=== PATIENT | female | born 1950 | race Caucasian/White ===

== ENCOUNTER 2017-11-12 20:20 | Emergency (ER) | payer MEDICARE, MEDICAID ==
[~2017-11-12] VITALS: Ht 160 cm; Wt 75.0 kg
[~2017-11-12 20:20] MED LIST: ADVA250A INH; ARMO90TA PO; BECL0.07 INH; CHOL50006 PO; EPZITAB4 PO; LEXA20TA PO; NEVI200 PO; ROSU10 PO; SPIRCAP INH; VITA10002 PO; Z.0.OXYGEN INH
[2017-11-12 20:36] VITALS: BP 173/94; PULSE 120; RESP 22; TEMP 98.4; O2SAT 96
[2017-11-12 22:00] VITALS: RESP 16; O2SAT 99
[2017-11-12] MEDS ORDERED: LORazepam 2 MG/ML VIAL IV PUSH ONE (22:00)
[2017-11-12] MEDS ORDERED: SODIUM CHLORIDE 0.9% FLUSH 10 ML FLUSH IVF PRN (22:00)
[2017-11-12] MEDS ORDERED: ASPIRIN 81 MG CHEW TAB PO ONE (22:00)
[2017-11-12 22:42] LABS: AUTOMATED NEUTROPHIL # 4.2 TH/MM3 (1.8-7.7); BASOPHIL % 0.4 % (0.0-2.0); EOSINOPHIL # 0.1 TH/MM3 (0-0.4); EOSINOPHIL % 1.7 % (0.0-4.0); HEMATOCRIT 37.8 % (35.0-46.0); HEMOGLOBIN 13.2 GM/DL (11.6-15.3); LYMPH % 25.7 % (9.0-44.0); LYMPHOCYTE # 1.7 TH/MM3 (1.0-4.8); MEAN CELL VOLUME 91.3 FL (80.0-100.0); MEAN CORPUSCULAR HEMOGLOBIN 31.9 PG (27.0-34.0); MEAN CORPUSCULAR HGB CONC 34.9 % (32.0-36.0); MEAN PLATELET VOLUME 8.6 FL (7.0-11.0); MONO % 6.6 % (0.0-8.0); MONOCYTE # 0.4 TH/MM3 (0-0.9); NEUT % 65.6 % (16.0-70.0); PLATELET COUNT 182 TH/MM3 (150-450); RED BLOOD COUNT 4.14 MIL/MM3 (4.00-5.30); RED CELL DISTRIBUTION WIDTH 14.5 % (11.6-17.2); WHITE BLOOD COUNT 6.4 TH/MM3 (4.0-11.0)
--- NOTE | 2017-11-12 22:53 | RADRPT ---
EXAM DATE/TIME: 11/12/2017 22:16 [place] COMPARISON: CHEST EXPIRATION ONLY, September 09, 2012, 11:35. INDICATIONS : Chest pain and short of breath. MEDICAL HISTORY : Carcinoma, thyroid. Carcinoma, lung. SURGICAL HISTORY : Left lung lobectomy, Rt infusaport. ENCOUNTER: Initial ACUITY: 1 day PAIN SCORE: 2/10 LOCATION: Bilateral chest FINDINGS: There is linear scarring in the right perihilar region in patient with history of lung cancer. No inf iltrate on the left with blunting of the left costophrenic angle, stable since 2012 and likely scarri ng. CONCLUSION: 1. Post treatment changes in the right perihilar region with residual linear scarring. Scarring at le ft costophrenic angle. No focal consolidation. Blaise Ricketts MD on November 12, 2017 at 22:49 Board Certified Radiologist. This report was verified electronically.
[2017-11-12 23:12] LABS: BICARBONATE 26.3 MEQ/L (21.0-32.0); BLOOD UREA NITROGEN 12 MG/DL (7-18); CALCIUM 8.3 MG/DL (8.5-10.1); CHLORIDE 106 MEQ/L (98-107); GLOMERULAR FILTRATION RATE 71 ML/MIN (>89); GLUCOSE,RANDOM 106 MG/DL (74-106); MAGNESIUM 1.7 MG/DL (1.5-2.5); SODIUM (NA) 141 MEQ/L (136-145); TROPONIN I LESS THAN 0.02 NG/ML (0.02-0.05)
--- NOTE | 2017-11-12 23:15 | PD ---
HPI . Anxiety Chief Complaint: Anxiety Time Seen by Provider: 21:57 Travel History International Travel<30 days: No Contact w/Intl Traveler<30days: No Traveled to known affect area: No History of Present Illness HPI Patient presents with a chief complaint of anxiety. Onset was about 4 PM. She took Valium 5 mg with no relief of her anxiety. The anxiety is associated with a headache. She states that she feels tremulous. She does report some associated chest discomfort. Her symptoms have improved with Ativan given here. Symptoms have been mild. PFSH Past Medical History Arthritis: No Asthma: No Autoimmune Disease: Yes (HIV) Blood Disorders: No Anxiety: Yes Depression: No Heart Rhythm Problems: No Cancer: Yes Cardiovascular Problems: No High Cholesterol: Yes Chemotherapy: Yes (thyroid) Chest Pain: No Congestive Heart Failure: No COPD: No Cerebrovascular Accident: No Diabetes: No Diminished Hearing: No Endocrine: Yes GERD: No Glaucoma: No Genitourinary: No Hepatitis: No Hiatal Hernia: Yes Hypertension: No Immune Disorder: No Kidney Stones: Yes (LEFT 2007) Musculoskeletal: Yes Neurologic: No Psychiatric: No Reproductive: No Respiratory: Yes (upper right lobe removal) Immunizations Current: No Migraines: Yes Myocardial Infarction: No Radiation Therapy: Yes Renal Failure: No Seizures: No Sickle Cell Disease: No Sleep Apnea: Yes Thyroid Disease: Yes (thyroidectomy) Ulcer: No Tetanus Vaccination: > 5 Years Influenza Vaccination: No Menopausal: Yes Past Surgical History Abdominal Surgery: No AICD: No Appendectomy: No Arteriovenous Shunt: No Cardiac Surgery: No Cholecystectomy: No Ear Surgery: No Endocrine Surgery: No Eye Surgery: No Genitourinary Surgery: No Gynecologic Surgery: No Insulin Pump: No Joint Replacement: No Oral Surgery: Yes (tonsillectomy) Pacemaker: No Thoracic Surgery: Yes (upper left lobectomy) Tonsillectomy: Yes (11 YRS OLD) Other Surgery: Yes Social History Alcohol Use: No Tobacco Use: No Substance Use: No Allergies-Medications (Allergen,Severity, Reaction): Coded Allergies: diatrizoate meglumine (Unverified Allergy, Severe, Rash, 11/12/17) Rash all over gadobenic acid (Unverified Allergy, Severe, Rash, 11/12/17) Rash all over gadodiamide (Unverified Allergy, Severe, Rash, 11/12/17) Rash all over gadoteridol (Unverified Allergy, Severe, Rash, 11/12/17) Rash all over iodixanol (Unverified Allergy, Severe, Rash, 11/12/17) Rash all over iohexol (Unverified Allergy, Severe, Rash, 11/12/17) Rash all over niacin (Unverified Allergy, Severe, RASH, 11/12/17) Rash all over levofloxacin (Unverified Allergy, Intermediate, BILAT KNEE SWELLING, ) Uncoded Allergies: niaspan (Allergy, Severe, rash and shortness of breath, 03/24/13) Reported Meds & Prescriptions Reported Meds & Active Scripts Active Spiriva Handihaler (Tiotropium [place]) 18 Mcg Cap 1 Dose INH DAILY DO NOT SWALLOW CAPSULES Qvar (Beclomethasone Dipropionate) 40 Mcg Aer 1 Puff INH BID [place] Thyroid (Thyroid) 90 Mg Tab 90 Mg PO DAILY Reported Vitamin D (Cholecalciferol) 5,000 Unit Tab 5,000 Unit PO DAILY Advair Diskus 250/50 (Salmeterol Xinafoate/Fluticasone) 250 Mcg/50 Mcg Inhp 1 Puff INH BID Crestor (Rosuvastatin Calcium) 10 Mg Tab 10 Mg PO DAILY Vitamin B12 (Cyanocobalamin) 1,000 Mcg Tab 2,500 Mcg PO DAILY Viramune (Nevirapine) 200 Mg Tab 200 Mg PO DAILY Oxygen (O2) (Miscellaneous Medication) Inha 2 L INH HS Lexapro (Escitalopram Oxalate) 20 Mg Tab 20 Mg PO DAILY Epzicom 600/300 (Abacavir/Lamivudine) Tab 1 Tab PO DAILY Review of Systems Except as stated in HPI: all other systems reviewed are Neg HENT: Positive: Headaches Cardiovascular: Positive: Chest Pain or Discomfort Respiratory: No: Cough, Shortness of Breath Psychiatric: Positive: Anxiety Physical Exam Narrative GENERAL: Awake and alert and in no acute distress. SKIN: warm/dry. HEAD: Normocephalic. Atraumatic. EYES: Pupils equal and round. No scleral icterus. No injection or drainage. ENT: No nasal bleeding or discharge. Mucous membranes pink and moist. NECK: Trachea midline. Full range of motion without pain.. CARDIOVASCULAR: Regular rate and rhythm. Heart sounds are normal. RESPIRATORY: No accessory muscle use. Clear to auscultation. Breath sounds equal bilaterally. MUSCULOSKELETAL: No obvious deformities. NEUROLOGICAL: Awake and alert. No obvious cranial nerve deficits. Motor grossly within normal limits. Normal speech. PSYCHIATRIC: Appropriate mood and affect; insight and judgment normal. Data Data Last Documented VS Vital Signs Date Time Temp Pulse Resp B/P (MAP) Pulse Ox O2 Delivery O2 Flow Rate FiO2 11/12/17 22:00 16 99 Room Air 11/12/17 20:36 98.4 120 173/94 (120) Orders Orders Electrocardiogram (11/12/17 ) Electrocardiogram (11/12/17 21:58) Basic Metabolic Panel (Bmp) (11/12/17 21:58) Complete Blood Count With Diff (11/12/17 21:58) Magnesium (Mg) (11/12/17 21:58) Troponin I (11/12/17 21:58) Ecg Monitoring (11/12/17 21:58) Iv Access Insert/Monitor (11/12/17 21:58) Oximetry (11/12/17 21:58) Aspirin Chew (Aspirin Chew) (11/12/17 22:00) Sodium Chloride 0.9% Flush (Ns Flush) (11/12/17 22:00) Chest, Pa & Lat (11/12/17 21:58) Lorazepam Inj (Ativan Inj) (11/12/17 22:00) Labs Laboratory Tests Test 11/12/17 22:10 White Blood Count 6.4 TH/MM3 Red Blood Count 4.14 MIL/MM3 Hemoglobin 13.2 GM/DL Hematocrit 37.8 % Mean Corpuscular Volume 91.3 FL Mean Corpuscular Hemoglobin 31.9 PG Mean Corpuscular Hemoglobin Concent 34.9 % Red Cell Distribution Width 14.5 % Platelet Count 182 TH/MM3 Mean Platelet Volume 8.6 FL Neutrophils (%) (Auto) 65.6 % Lymphocytes (%) (Auto) 25.7 % Monocytes (%) (Auto) 6.6 % Eosinophils (%) (Auto) 1.7 % Basophils (%) (Auto) 0.4 % Neutrophils # (Auto) 4.2 TH/MM3 Lymphocytes # (Auto) 1.7 TH/MM3 Monocytes # (Auto) 0.4 TH/MM3 Eosinophils # (Auto) 0.1 TH/MM3 Basophils # (Auto) 0.0 TH/MM3 CBC Comment DIFF FINAL Differential Comment MDM Medical Decision Making Medical Screen Exam Complete: Yes Emergency Medical Condition: Yes Medical Record Reviewed: Yes (Medical history is significant for both lung and thyroid cancer. She also has COPD, anxiety and HIV.) Interpretation(s) EKG shows a sinus rhythm with a rate of 107. No ST segment elevation or depression. EKG is unchanged from previous. Differential Diagnosis Differential diagnosis of chest pain includes but is not limited to musculoskeletal pain, pulmonary embolism, acute coronary syndrome, pneumonia, pleurisy Narrative Course This patient presents with anxiety which is associated with a headache and chest pain. She has been treated here with Ativan and feels better. Her EKG shows a sinus tachycardia but is otherwise unchanged from previous. CBC & BMP Diagram 11/12/17 22:10 Calcium Level 8.3 L, Magnesium Level 1.7 trop < 0.02 CXR>>Post treatment changes in the right perihilar region with residual linear scarring. Scarring at left costophrenic angle. No focal consolidation. The chest x-ray was independently reviewed by me. This patient is medically clear for discharge to home. Diagnosis Primary Impression: Chest pain Qualified Codes: R07.9 - Chest pain, unspecified Additional Impression: Anxiety Patient Instructions: Anxiety (DC), General Instructions Disposition: 01 DISCHARGE HOME Condition: Stable Jolene Lord MD Nov 12, 2017 23:15
--- NOTE | 2017-11-13 20:11 | EKG ---
Date Performed: 11/12/2017 Time Performed: 20:44:50 PTAGE: 67 years EKG: SINUS TACHYCARDIA POSSIBLE RIGHT ATRIAL ENLARGEMENT LEFT ATRIAL ENLARGEMENT Since previous tracing, no significant change noted ABNORMAL ECG PREVIOUS TRACING : 03/24/2013 09.11.28 DOCTOR: Darren Huerta Interpretating Date/Time 11/13/2017 20:09:47
== END 2017-11-12 23:40 | disposition home or self-care (01) ==
LOC: NEPE 20:20
DX: R07.9 Chest pain, unspecified (principal); F41.9 Anxiety disorder, unspecified; R51 Headache; E07.9 Disorder of thyroid, unspecified; E78.00 Pure hypercholesterolemia, unspecified; Z21 Asymptomatic human immunodeficiency virus [HIV] infection status; Z79.899 Other long term (current) drug therapy
CPT/HCPCS: 71046; 80048; 83735; 84484; 85025; 93005; 96374; 99285; J2060